=== PATIENT | male | born 1955 | race African-American/Black ===

== ENCOUNTER 2020-05-19 01:06 | Inpatient (IN) | payer MEDICARE, MEDICAID ==
[~2020-05-19] VITALS: Ht 325.1 cm; Wt 68.9 kg
[2020-05-19] MEDS ORDERED: ONDANSETRON HCL 4MG/2ML INJ IV STA (01:18)
[2020-05-19] MEDS ORDERED: LORAZEPAM 2MG/ML CPJ IV ONE (01:30)
[2020-05-19] MEDS ORDERED: DEXT 10% WATER 1,000 ML IV ONE (01:30)
[2020-05-19 01:42] LABS: BG BASE EXCESS -0.5 mmol/L (-2.0-2.0); BG CARBOXYHEMOGLOBIN 0.3 % (0.5-1.5); BG DEOXYHEMOGLOBIN 2.3 % (0.0-5.0); BG FRACTION INSPIRED OXYGEN 21; BG HCO3 ACT 24.4 mmol/L (22.0-26.0); BG METHEMOGLOBIN 0.2 % (0.0-1.5); BG OXYGEN SATURATION 97.7 % (92.0-98.5); BG OXYHEMOGLOBIN 97.2 % (94.0-97.0); BG PCO2 41.5 mmHg (35.0-45.0); BG PH 7.388 (7.350-7.450); BG PO2 105.4 mmHg (75.0-100.0); BG SAMPLE SITE RIGHT RADIAL; BG TOTAL HEMOGLOBIN 10.1 g/dL (12.0-18.0); BG VENT MODE ROOM AIR
[2020-05-19 02:10] LABS: BASOPHILS % 0.4 % (0.0-2.0); EOSINOPHILS % 1.7 % (0.0-5.0); HEMATOCRIT. 31.7 % (42.0-52.0); HEMOGLOBIN. 10.1 g/dL (14.0-18.0); LYMPHOCYTES % 20.9 % (20.0-50.0); MEAN CORPUSCULAR HEMOGLOBIN 26.9 pg (28.0-32.0); MEAN CORPUSCULAR VOLUME 84.8 fL (80.0-94.0); MEAN PLATELET VOLUME 7.7 fl (7.4-10.4); MONOCYTES % 7.8 % (2.0-8.0); NEUTROPHILS % 69.2 % (40.0-76.0); PLATELET 229 x1000/uL (130-400); RED BLOOD CELL COUNT 3.74 mill/uL (4.7-6.1); RED CELL DISTRIBUTION WIDTH 19.2 % (11.6-14.6)
[2020-05-19 02:18] LABS: CHLORIDE 109 mEq/L (98-107)
[2020-05-19 02:22] LABS: ETHANOL BLOOD < 10 mg/dL
[2020-05-19 02:24] LABS: INR 1.2; PROTHROMBIN TIME 13.2 sec (9.6-11.0)
[2020-05-19] MEDS ORDERED: ONDANSETRON HCL 4MG/2ML INJ IV PRN (07:00)
[2020-05-19] MEDS ORDERED: ACETAMINOPHEN 650MG SUPP PR PRN (07:00)
[2020-05-19] MEDS: DEXT 5%/0.45% NACL 1000ML 1,000 ML IV SCH ×2 (07:34→12:48)
[2020-05-19] MEDS ORDERED: DEXTROSE 50% WATER 50ML SYRINGE IV PRN (08:00)
[2020-05-19 09:00] VITALS: BP 157/82
[2020-05-19] MEDS: BLOOD SUGAR DIAGNOSTIC STRIP TEST SCH ×4 (09:35→20:02)
[2020-05-19 11:00] VITALS: BP 157/82
[2020-05-19 12:00] VITALS: BP 115/64
[2020-05-19] MEDS ORDERED: AMLO10TA80 MT (14:03)
[2020-05-19] MEDS ORDERED: ASCO125T PO (14:03)
[2020-05-19] MEDS ORDERED: RIVA20TA MT (14:03)
[2020-05-19] MEDS ORDERED: HUM100IN SQ (14:03)
[2020-05-19] MEDS ORDERED: FEXO-25 MT (14:03)
[2020-05-19] MEDS ORDERED: LATA7.5D OP (14:03)
[2020-05-19] MEDS ORDERED: MULT-1146 MT (14:03)
[2020-05-19] MEDS ORDERED: PRED5DRO22 OP (14:03)
[2020-05-19] MEDS ORDERED: INSU100I28 SQ (14:03)
[2020-05-19] MEDS ORDERED: METO-539 MT (14:03)
[2020-05-19] MEDS ORDERED: DORZ10DR12 OP (14:03)
[2020-05-19] MEDS ORDERED: HYDR-4135 MT (14:03)
[2020-05-19] MEDS ORDERED: SUCR1TAB30 PO (15:59)
[2020-05-19 16:00] VITALS: BP 160/70
[2020-05-19] MEDS ORDERED: DIAZ5TAB4 MT (18:55)
[2020-05-19] MEDS ORDERED: FLUT16SP15 BOTHNSTRLS (18:55)
[2020-05-19] MEDS ORDERED: CETI-89 MT (18:55)
[2020-05-19 20:00] VITALS: BP 156/74
[2020-05-20] VITALS: BP 152/88
[2020-05-20 04:00] VITALS: BP 162/80
[2020-05-20] MEDS: BLOOD SUGAR DIAGNOSTIC STRIP TEST SCH ×4 (06:16→20:52)
[2020-05-20 09:26] LABS: BASOPHILS % 0.4 % (0.0-2.0); EOSINOPHILS % 1.4 % (0.0-5.0); HEMATOCRIT. 29.5 % (42.0-52.0); HEMOGLOBIN. 9.4 g/dL (14.0-18.0); LYMPHOCYTES % 17.2 % (20.0-50.0); MEAN CORPUSCULAR HEMOGLOBIN 27.2 pg (28.0-32.0); MEAN CORPUSCULAR VOLUME 85.7 fL (80.0-94.0); MEAN PLATELET VOLUME 8.2 fl (7.4-10.4); MONOCYTES % 6.5 % (2.0-8.0); NEUTROPHILS % 74.5 % (40.0-76.0); PLATELET 206 x1000/uL (130-400); RED BLOOD CELL COUNT 3.45 mill/uL (4.7-6.1); RED CELL DISTRIBUTION WIDTH 19.4 % (11.6-14.6)
[2020-05-20 09:36] LABS: CHLORIDE 106 mEq/L (98-107)
[2020-05-20 10:06] VITALS: BP 155/82
[2020-05-20 11:37] VITALS: BP 131/75
[2020-05-20 12:39] LABS: VITAMIN B12 SERUM 502 pg/mL (211-911)
[2020-05-20 16:00] VITALS: BP 136/79
[2020-05-20 20:00] VITALS: BP 127/68
[2020-05-21] VITALS: BP 120/56
[2020-05-21 04:00] VITALS: BP 137/68
[2020-05-21] MEDS: BLOOD SUGAR DIAGNOSTIC STRIP TEST SCH ×4 (05:57→12:10)
[2020-05-21] MEDS ORDERED: DEXTROSE 50% WATER 50ML SYRINGE IV PRN (06:00)
[2020-05-21 08:00] VITALS: BP 135/75
[2020-05-21] MEDS: INSULIN LISPRO 100 UNITS/ML SUBCUT SCH ×2 (08:35→13:32)
[2020-05-21] MEDS ORDERED: CLOPIDOGREL 75MG TABLET PO SCH (10:00)
[2020-05-21] MEDS ORDERED: ASPIRIN 325MG EC TABLET PO SCH (10:00)
[2020-05-21] MEDS ORDERED: ENOXAPARIN 40MG/0.4ML SYR SUBCUT SCH (10:00)
[2020-05-21] MEDS ORDERED: METOPROLOL TARTRATE 50MG TABLET PO SCH (10:15)
[2020-05-21 12:00] VITALS: BP 144/77
[2020-05-21] MEDS ORDERED: INSULIN GLARGINE UD 100 UNITS/ML SYR SUBCUT SCH (12:00)
[2020-05-21 12:10] VITALS: BP 135/75
[2020-05-21] MEDS ORDERED: RIVAROXABAN 10 MG TABLET PO SCH (17:00)
[2020-05-21] MEDS ORDERED: ATORVASTATIN CALCIUM 40MG TABLET PO SCH (21:00)
== END 2020-05-21 14:47 | disposition home or self-care (01) | DRG 637 ==
LOC: ER 01:06 → 8WST 05:47 → ENRESERV 07:57
PROVIDERS: ADMIT Hospitalist; ATTEND Hospitalist
PROC: 4A10X4Z Monitoring of Central Nervous Electrical Activity, External Approach (ICD-10-PCS; principal; 2020-05-21)
DX: E11.649 Type 2 diabetes mellitus with hypoglycemia without coma (principal); G93.41 Metabolic encephalopathy; E44.1 Mild protein-calorie malnutrition; N17.9 Acute kidney failure, unspecified; D63.8 Anemia in other chronic diseases classified elsewhere; I45.10 Unspecified right bundle-branch block; G93.89 Other specified disorders of brain; I10 Essential (primary) hypertension; Z85.038 Personal history of other malignant neoplasm of large intestine; I69.398 Other sequelae of cerebral infarction
CPT/HCPCS: 36415; 36600; 70551; 71045; 80053; 80061; 80320; 82140; 82375; 82607; 82805; 82962; 83036; 83605; 84443; 84484; 85025; 92610; 93005; 93970; 95816; 97162; 97166; 99291; J1815; J2060; J2405; G0480